=== PATIENT | female | born 1940 | race Two or more races ===

== ENCOUNTER 2020-02-29 08:50 | Emergency (ER) | payer MEDICARE, OTHER ==
[~2020-02-29] VITALS: Ht 165.1 cm; Wt 61.2 kg
--- NOTE | 2020-02-29 08:50 | NUR ---
ED Nurse Note: Pt walked in from home c/o right lower back pain that radiates to right leg x 3 days. Respirations even and unlabored on room air. Vitals stable as documented. Son @ bedside
--- NOTE | 2020-02-29 08:54 | Emergency Room Report ---
History of Present Illness General Chief Complaint: Pain Source: Patient, Family Member Present Illness HPI Disclaimer: Please note that this report is being documented using DRAGON technology. This can lead to erroneous entry secondary to incorrect interpretation by the dictating instrument. HPI: 79-year-old female presenting for evaluation of back pain. Symptoms present approximately 3 days. Right-sided and radiate down the right leg. There was no reported injury no history of back pain or previous injury. Denies changes in strength but notes hypersensitivity. Denies rashes or skin breakdown. Denies fever, chills, dysuria, hematuria, flank pain, urinary retention, fecal incontinence. Did not receive the shingles booster. Had chickenpox as a kid. No known sick contacts. Otherwise in her usual state of health. PMH: Hyperlipidemia PSH: Cyst removal Allergies: None reported Social Hx: None reported Allergies: Coded Allergies: No Known Allergies (Unverified , 02/29/20) COVID-19 Screening Contact w/high risk pt: No Recent Travel to affected area: No Experienced COVID-19 symptoms?: No Patient History Now: No Nursing Documentation-PMH Past Medical History: No History, Except For Review of Systems All Other Systems: negative except mentioned in HPI Physical Exam Vital Signs Date Time Temp Pulse Resp B/P (MAP) Pulse Ox O2 Delivery O2 Flow Rate FiO2 02/29/20 08:25 99.1 75 16 186/74 (111) 97 Room Air General: Awake and alert, no acute distress HEENT: NC/AT. EOMI. Resp: Normal work of breathing Skin: There is a cluster of vesicles on an erythematous base lower to the right lower back. Otherwise no ulcerations, no breakdown, no bleeding, no purulent drainage. Vesicles are intact. MSK: Normal tone and bulk. Moving all extremities. No obvious deformity. Sensation intact in the lower extremities over the dermatomes bilaterally. Strength is 5/5 at the hips, knees. Neuro: Awake and alert. Mentating appropriately Medical Decision Making Diagnostic Impression: Primary Impression: Shingles ER Course 79-year-old female presents for evaluation of 3 days right-sided back pain. Patient resents with a vesicular rash on an erythematous base on the right side and complaining of hypersensitivity the right leg. Presentation today is most consistent with shingles infection. Patient chickenpox as a child did not receive a booster. Otherwise in her usual state of health. No trauma reported. Will provide analgesia, obtain screening labs to assess for liver function studies and start antivirals. Patient be discharged to follow-up on an outpatient basis with PMD. Discussed reasons to return to the emergency department. She understands and agrees with this treatment plan. Laboratory Tests Test 02/29/20 08:50 White Blood Count 7.2 K/UL (4.8-10.8) Red Blood Count 4.22 M/UL (4.20-5.40) Hemoglobin 12.9 G/DL (12.0-16.0) Hematocrit 37.3 % (37.0-47.0) Mean Corpuscular Volume 88 FL (80-99) Mean Corpuscular Hemoglobin 30.6 PG (27.0-31.0) Mean Corpuscular Hemoglobin Concent 34.6 G/DL (32.0-36.0) Red Cell Distribution Width 11.1 % (11.6-14.8) L Platelet Count 223 K/UL (150-450) Mean Platelet Volume 6.0 FL (6.5-10.1) L Neutrophils (%) (Auto) 77.7 % (45.0-75.0) H Lymphocytes (%) (Auto) 15.0 % (20.0-45.0) L Monocytes (%) (Auto) 7.1 % (1.0-10.0) Eosinophils (%) (Auto) 0.0 % (0.0-3.0) Basophils (%) (Auto) 0.2 % (0.0-2.0) Sodium Level 138 MMOL/L (136-145) Potassium Level 4.3 MMOL/L (3.5-5.1) Chloride Level 102 MMOL/L (98-107) Carbon Dioxide Level 30 MMOL/L (21-32) Anion Gap 6 mmol/L (5-15) Blood Urea Nitrogen 22 mg/dL (7-18) H Creatinine 0.9 MG/DL (0.55-1.30) Estimated Glomerular Filtration Rate > 60 mL/min (>60) Glucose Level 122 MG/DL (74-106) H Calcium Level 9.1 MG/DL (8.5-10.1) Total Bilirubin 0.4 MG/DL (0.2-1.0) Aspartate Amino Transferase (AST) 18 U/L (15-37) Alanine Aminotransferase (ALT) 26 U/L (12-78) Alkaline Phosphatase 42 U/L (46-116) L Total Protein 7.6 G/DL (6.4-8.2) Albumin 3.8 G/DL (3.4-5.0) Globulin 3.8 g/dL Albumin/Globulin Ratio 1.0 (1.0-2.7) Last Vital Signs Date Time Temp Pulse Resp B/P (MAP) Pulse Ox O2 Delivery O2 Flow Rate FiO2 02/29/20 08:25 99.1 75 16 186/74 (111) 97 Room Air Disposition: HOME, SELF-CARE Condition: Stable Scripts Hydrocodone Bit/Acetaminophen 5-325* (NORCO 5-325 TABLET*) 1 Each Tablet 1 TAB ORAL Q6H PRN for FOR PAIN, #15 TAB 0 Refills Prov: Jagdish Raines MD 02/29/20 Valacyclovir Hcl* (VALTREX*) 500 Mg Tablet 1000 MG ORAL TID for 7 Days, #21 TAB Prov: Jagdish Raines MD 02/29/20 Jagdish Raines MD Feb 29, 2020 08:54
[2020-02-29] MEDS ORDERED: Morphine Sulfate 2mg/ml Inj(IV/IM USE ONLY) IVP ONE (09:00)
[2020-02-29] MEDS ORDERED: valACYclovir HCL 500mg tab ORAL ONE (09:00)
[2020-02-29 09:03] LABS: BASOPHILS % (AUTO) 0.2 % (0.0-2.0); HEMATOCRIT 37.3 % (37.0-47.0); HEMOGLOBIN 12.9 G/DL (12.0-16.0); MEAN CORPUSCULAR VOLUME 88 FL (80-99); MONOCYTES % (AUTO) 7.1 % (1.0-10.0); NEUTROPHILS % (AUTO) 77.7 % (45.0-75.0); PLATELET COUNT 223 K/UL (150-450); RED BLOOD COUNT 4.22 M/UL (4.20-5.40); RED CELL DISTRIBUTION WIDTH 11.1 % (11.6-14.8); WHITE BLOOD COUNT 7.2 K/UL (4.8-10.8)
[2020-02-29 09:07] VITALS: BP 178/76
[2020-02-29 09:16] LABS: ANION GAP 6 mmol/L (5-15); BLOOD UREA NITROGEN 22 mg/dL (7-18); CALCIUM 9.1 MG/DL (8.5-10.1); CARBON DIOXIDE 30 MMOL/L (21-32); CHLORIDE 102 MMOL/L (98-107); CREATININE 0.9 MG/DL (0.55-1.30); POTASSIUM 4.3 MMOL/L (3.5-5.1); SODIUM 138 MMOL/L (136-145)
[2020-02-29 09:21] LABS: ALANINE AMINOTRANSFERASE 26 U/L (12-78); ALBUMIN 3.8 G/DL (3.4-5.0); ALKALINE PHOSPHATASE 42 U/L (46-116); ASPARTATE AMINO TRANSFERASE 18 U/L (15-37); BILIRUBIN,TOTAL 0.4 MG/DL (0.2-1.0)
[2020-02-29] MEDS ORDERED: VALACYCLOVIR500 MG ORAL (09:21)
[2020-02-29] MEDS ORDERED: NORCO 5-325 TA1 EAC1 ORAL (09:21)
[2020-02-29 09:27] VITALS: BP 172/78
--- NOTE | 2020-02-29 09:27 | NUR ---
ER DISCHARGE NOTE: Patient is cleared to be discharged per ERMD, pt is aox4, on room air, with stable vital signs. pt was given dc and prescription instructions, pt was able to verbalize understanding, pt id band and iv site removed without complications. pt is able to ambulate with steady gait. pt took all belongings.
== END 2020-02-29 09:27 | disposition home or self-care (01) ==
LOC: EMR 08:50 → EEVIPCON 08:50 → EMR 09:27
DX: B02.9 Zoster without complications (principal); E78.5 Hyperlipidemia, unspecified
CPT/HCPCS: 36415; 80053; 85025; 96374; 99284; J2270